=== PATIENT | female | born 1980 | race Caucasian/White ===

== ENCOUNTER 2017-08-17 09:40 | Outpatient (CLI) | payer BC | END 2017-08-17 09:41 | disposition home or self-care (01) | LOC: BICRAD 09:40 | PROVIDERS: ATTEND Family Medicine | DX: M79.641 Pain in right hand (principal); M79.1 Myalgia; Z82.61 Family history of arthritis ==

== ENCOUNTER 2020-02-06 07:35 | Outpatient (CLI) | payer MEDICAID ==
--- NOTE | 2020-02-06 09:23 | ULT ---
TRANSABDOMINAL AND TRANSVAGINAL PELVIC ULTRASOUND WITH DOPPLER: DATE: 02/06/2020. PROVIDED CLINICAL HISTORY: Pelvic pain. FINDINGS: The uterus measures approximately 7 x 5.8 x 4.2 cm and demonstrates a normal sonographic appearance. Endometrial thickness is about 3 mm. Right and left ovaries appear sonographically unremarkable. Simple 1.5 cm left paraovarian cyst. Color Doppler and spectral analysis of the ovarian waveforms demonstrates normal flow bilaterally. There is no evidence for free pelvic fluid. IMPRESSION: No evidence for an acute process. POS: [facility]
== END 2020-02-06 07:36 | disposition home or self-care (01) ==
LOC: BICULT 07:35
PROVIDERS: ATTEND Nurse Practitioner Family
DX: R10.2 Pelvic and perineal pain (principal)
CPT/HCPCS: 76856

== ENCOUNTER 2021-01-03 15:19 | Outpatient (CLI) | payer MEDICAID | END 2021-01-03 15:20 | disposition home or self-care (01) | LOC: BICMAMMO 15:19 | PROVIDERS: ATTEND Nurse Practitioner Family | DX: Z12.31 Encounter for screening mammogram for malignant neoplasm of breast (principal); Z80.3 Family history of malignant neoplasm of breast | CPT/HCPCS: 77067 ==

== ENCOUNTER 2023-05-20 08:11 | Outpatient (CLI) | payer MEDICAID | END 2023-05-20 08:12 | disposition home or self-care (01) | LOC: BICMAMMO 08:11 | PROVIDERS: ATTEND Nurse Practitioner Family | DX: Z12.31 Encounter for screening mammogram for malignant neoplasm of breast (principal); Z80.3 Family history of malignant neoplasm of breast | CPT/HCPCS: 77067 ==